=== PATIENT | male | born 1985 | race Two or more races ===

== ENCOUNTER 2021-08-08 22:19 | Emergency (ER) | payer SELFPAY ==
[~2021-08-08] VITALS: Ht 175.3 cm; Wt 108.9 kg
[2021-08-08 22:23] VITALS: BP 129/84
== END 2021-08-08 23:43 | disposition left against medical advice (07) ==
LOC: ER 22:19
DX: R10.9 Unspecified abdominal pain (principal); R51.9 Headache, unspecified; Z53.21 Procedure and treatment not carried out due to patient leaving prior to being seen by health care provider